=== PATIENT | female | born 2000 | race Caucasian/White ===

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

== ENCOUNTER → 2021-01-04 | Outpatient (CLI) | payer OTHER, BC ==
[~2021-01-04] MED LIST: ESTA0.25
[2021-01-05 13:08] LABS: HSV TYPE II IgG SPECIFIC 1.24 index (0.00-0.90)
== END ==
LOC: M WUC 09:17
PROVIDERS: ATTEND Obstetrics & Gynecology
DX: Z72.51 High risk heterosexual behavior (principal)

== ENCOUNTER → 2021-09-19 | Outpatient (REF) | payer BC, OTHER | LOC: M WUC 16:20 | PROVIDERS: ATTEND Student in an Organized Health Care Education/Training Program | DX: J03.90 Acute tonsillitis, unspecified (principal) ==

== ENCOUNTER → 2022-05-18 | Outpatient (REF) | payer BC, OTHER | LOC: M LAB REF 17:58 | PROVIDERS: ATTEND Nurse Practitioner Family | DX: R30.0 Dysuria (principal) ==

== ENCOUNTER → 2022-08-14 | Outpatient (CLI) | payer BC, OTHER ==
[2022-08-14 17:58] LABS: HEMATOCRIT 39.2 % (36.0-47.0); HEMOGLOBIN 13.1 g/dl (12.0-15.5); MEAN CORPUSCULAR HEMOGLOBIN 30.2 pg (27.0-33.0); MEAN CORPUSCULAR HGB CONC 33.4 g/dl (32.0-36.5); MEAN CORPUSCULAR VOLUME 90.3 fl (80.0-96.0); PLATELET COUNT, AUTOMATED 224 10^3/uL (150-450); RED BLOOD COUNT 4.34 10^6/uL (4.00-5.40); WHITE BLOOD COUNT 10.3 10^3/uL (4.0-10.0)
[2022-08-14 18:25] LABS: FREE T4 0.85 NG/DL (0.89-1.76); THYROID STIMULATING HORMONE 1.477 uIU/ML (0.55-4.78); TOTAL 25(OH) VITAMIN D 23.1 NG/ML (20.0-100.0)
[2022-08-14 18:42] LABS: HEPATITIS B SURFACE ANTIGEN NEGATIVE (NEGATIVE)
[2022-08-14 18:55] LABS: HIV 1&2 SCREEN NEGATIVE (NEGATIVE)
[2022-08-14 19:03] LABS: HEPATITIS C VIRUS ABY INDEX 0.08 INDEX (<0.8)
[2022-08-16 06:09] LABS: HSV TYPE II IgG SPECIFIC 6.31 index (0.00-0.90)
== END ==
LOC: M WUC 12:36
PROVIDERS: ATTEND Obstetrics & Gynecology
DX: Z34.01 Encounter for supervision of normal first pregnancy, first trimester (principal)